=== PATIENT | female | born 1980 | race Hispanic/Latino ===

== ENCOUNTER 2022-11-02 14:53 | Emergency (ER) | payer OTHER ==
[~2022-11-02] VITALS: Ht 162.6 cm; Wt 59.0 kg
[2022-11-02 14:59] VITALS: BP 154/94
== END 2022-11-02 17:38 | disposition left against medical advice (07) ==
LOC: EDH 14:53
DX: M54.9 Dorsalgia, unspecified (principal); R05.9 Cough, unspecified; J45.909 Unspecified asthma, uncomplicated; Z88.6 Allergy status to analgesic agent; Z88.8 Allergy status to other drugs, medicaments and biological substances; Z20.822 Contact with and (suspected) exposure to COVID-19
CPT/HCPCS: 99283; 87635; 87880; 87804 ×2; 81025; C9803